=== PATIENT | female | born 1950 | race Caucasian/White ===

== ENCOUNTER 2017-08-12 16:24 | Emergency (ER) | payer OTHER ==
[~2017-08-12 16:24] MED LIST: 384 PO; ALLERGY RELIEF10 M1 PO; CYMBALTA30 M1 PO; FOLIC ACID1 MG PO; GABAPENTIN TAB600 MG PO; HYDROXYCHLOROQ200 M2 PO; IMITREX100 MG PO; LEVOTHYROXIN0.075 MG PO; LIO10 PO; METHOTREXATE2.5 M2 PO; PRE5 PO; PROTONIX TR40 MG PO; STOOL SOFTENER PO
[2017-08-12 17:37] VITALS: BP 108/75
== END 2017-08-12 18:06 | disposition home or self-care (01) ==
LOC: ED 16:24
DX: M54.9 Dorsalgia, unspecified (principal); M06.9 Rheumatoid arthritis, unspecified
CPT/HCPCS: J2270; Q0162

== ENCOUNTER 2018-10-02 20:18 | Emergency (ER) | payer OTHER | END 2018-10-02 22:10 | disposition left against medical advice (07) | LOC: ED 20:18 | DX: Z53.21 Procedure and treatment not carried out due to patient leaving prior to being seen by health care provider (principal) ==